=== PATIENT | male | born 1955 | race Caucasian/White ===

== ENCOUNTER 2023-07-10 21:12 | Inpatient (IN) | payer MEDICAID, OTHER ==
[~2023-07-10] VITALS: Ht 172.7 cm; Wt 83.9 kg
[~2023-07-10 21:12] MED LIST: ASPI-1497 PO; ATOR40TA70 PO; GABA-529 PO; INSLIS SUBCUT; LANC1KIT MC; LOSA50TA41 PO; OMEG-118 MT; SEVE800T8 PO; [UNRECOGNIZED DRUG - CODE] PO
[2023-07-10] MEDS: DIPHENHYDRAMINE 25MG CAPSULE PO ONE (21:58)
[2023-07-10] MEDS: MORPHINE SULFATE 4 MG/ML INJ (FOR IV/IM USE) IV STA (22:38)
[2023-07-10 23:00] LABS: BASOPHILS % 0.5 % (0.0-2.0); CHLORIDE 99 mEq/L (98-107); EOSINOPHILS % 0.7 % (0.0-5.0); HEMATOCRIT. 29.5 % (42.0-52.0); LYMPHOCYTES % 9.4 % (20.0-50.0); MEAN CORPUSCULAR HEMOGLOBIN 29.4 pg (28.0-32.0); MEAN CORPUSCULAR HGB CONC 33.9 g/dL (31.0-37.0); MEAN CORPUSCULAR VOLUME 86.9 fL (80.0-94.0); MEAN PLATELET VOLUME 8.3 fl (7.4-10.4); MONOCYTES % 12.4 % (2.0-8.0); PLATELET 262 x1000/uL (130-400); POTASSIUM 3.4 mEq/L (3.5-5.1); RED CELL DISTRIBUTION WIDTH 18.2 % (11.6-14.6); SODIUM 136 mEq/L (136-145); WHITE BLOOD COUNT 8.2 x1000/uL (4.5-11.0)
[2023-07-10 23:01] LABS: CARBON DIOXIDE 30 mEq/L (21-32)
[2023-07-10 23:02] LABS: CALCIUM 9.3 mg/dL (8.7-10.4)
[2023-07-10 23:06] LABS: CREATININE 4.5 mg/dL (0.6-1.3); GLUCOSE 154 mg/dL (70-105); UREA NITROGEN BLOOD 32 mg/dL (9-23)
[2023-07-10 23:07] LABS: PROTHROMBIN TIME 11.3 sec (9.6-11.0)
[2023-07-10 23:08] LABS: ALANINE AMINOTRANSFERASE 68 IU/L (10-49); ALBUMIN 4.2 g/dL (3.2-4.8); ASPARTATE AMINOTRANSFERASE 148 IU/L (<34); BILIRUBIN DIRECT 0.9 mg/dL (<=3.0)
[2023-07-10 23:09] LABS: BILIRUBIN TOTAL 1.2 mg/dL (0.1-1.0)
[2023-07-11] MEDS ORDERED: IPRATROPIUM/ALBUTEROL 0.5-3(2.5)MG/3ML NEB HHN PRN (03:00)
[2023-07-11] MEDS ORDERED: MAGNESIUM/ALUMINUM HYDROXIDE/SIMETHICONE 30ML UDC PO PRN (03:00)
[2023-07-11] MEDS ORDERED: ONDANSETRON HCL 4MG/2ML INJ IV PRN (03:00)
[2023-07-11] MEDS ORDERED: CLONIDINE 0.1MG TABLET PO PRN (03:00)
[2023-07-11] MEDS ORDERED: ACETAMINOPHEN 325MG TABLET PO PRN (03:00)
[2023-07-11] MEDS ORDERED: GUAIFENESIN 200MG/10ML SUGAR FREE UDC PO PRN (03:00)
[2023-07-11] MEDS ORDERED: DOCUSATE SODIUM 100MG CAPSULE PO PRN (03:00)
[2023-07-11] MEDS ORDERED: DEXTROSE 50% WATER 50ML SYRINGE IV PRN (03:00)
[2023-07-11] MEDS ORDERED: HYDR25TA78 PO (03:10)
[2023-07-11] MEDS: LACTULOSE 20G/30ML UDC PO NR (06:00)
[2023-07-11] MEDS ORDERED: LOSA100T33 PO (06:02)
[2023-07-11] MEDS ORDERED: AMLO10TA80 PO (06:02)
[2023-07-11] MEDS: ACETAMINOPHEN 325MG TABLET PO PRN (06:05)
[2023-07-11] MEDS: BLOOD SUGAR DIAGNOSTIC STRIP TEST SCH (06:46)
[2023-07-11] MEDS: PANTOPRAZOLE 40MG DR TABLET PO SCH (06:46)
[2023-07-11] MEDS: SEVELAMER CARBONATE 800 MG TABLET PO SCH (07:14)
[2023-07-11] MEDS: INSULIN LISPRO 100 UNITS/ML SUBCUT SCH (07:15)
[2023-07-11 08:55] VITALS: BP 157/68; PULSE 72; RESP 20; TEMP 97.1
[2023-07-11] MEDS ORDERED: LOSARTAN 100 MG TABLET PO SCH (09:00)
[2023-07-11] MEDS ORDERED: SEVELAMER CARBONATE 800 MG TABLET PO SCH (09:00)
[2023-07-11 09:57] LABS: CALCIUM 8.9 mg/dL (8.7-10.4); CARBON DIOXIDE 29 mEq/L (21-32); CHLORIDE 99 mEq/L (98-107); POTASSIUM 3.6 mEq/L (3.5-5.1); SODIUM 137 mEq/L (136-145)
[2023-07-11 09:59] LABS: BASOPHILS % 0.4 % (0.0-2.0); EOSINOPHILS % 0.7 % (0.0-5.0); HEMATOCRIT. 28.6 % (42.0-52.0); HEMOGLOBIN. 9.5 g/dL (14.0-18.0); LYMPHOCYTES % 9.2 % (20.0-50.0); MEAN CORPUSCULAR HEMOGLOBIN 29.2 pg (28.0-32.0); MEAN CORPUSCULAR HGB CONC 33.4 g/dL (31.0-37.0); MEAN CORPUSCULAR VOLUME 87.5 fL (80.0-94.0); MEAN PLATELET VOLUME 8.2 fl (7.4-10.4); MONOCYTES % 11.7 % (2.0-8.0); PLATELET 227 x1000/uL (130-400); RED BLOOD CELL COUNT 3.27 mill/uL (4.7-6.1); WHITE BLOOD COUNT 7.5 x1000/uL (4.5-11.0)
[2023-07-11 10:03] LABS: GLUCOSE 99 mg/dL (70-105); TRIGLYCERIDE 48 mg/dL (0-150); UREA NITROGEN BLOOD 36 mg/dL (9-23)
[2023-07-11 10:04] LABS: CHOLESTEROL 129 mg/dL (<200); LDL CHOLESTEROL 21 mg/dL (5-100)
[2023-07-11 10:05] LABS: HDL CHOLESTEROL 71 mg/dL (>55); PHOSPHORUS 3.6 mg/dL (2.5-4.9)
[2023-07-11 10:06] LABS: THYROID STIMULATING HORMONE 2.14 uIU/mL (0.55-4.78)
[2023-07-11] MEDS: ENOXAPARIN 30MG/0.3ML SYR SUBCUT SCH (10:25)
[2023-07-11] MEDS: GABAPENTIN 100MG CAPSULE PO SCH (10:25)
[2023-07-11] MEDS: AMLODIPINE 10MG TABLET PO SCH (10:26)
[2023-07-11] MEDS: HYDRALAZINE HCL 25MG TABLET PO SCH (10:26)
[2023-07-11] MEDS: ASPIRIN 81MG EC TABLET PO SCH (10:26)
[2023-07-11] MEDS: ATORVASTATIN CALCIUM 40MG TABLET PO SCH (10:26)
[2023-07-11] MEDS: HYDROCODONE/ACETAMINOPHEN 5/325MG TABLET PO PRN (10:30)
[2023-07-11 10:41] VITALS: BP 157/68; PULSE 72; RESP 20; TEMP 97.1
[2023-07-11 12:00] VITALS: BP 163/58; PULSE 70; RESP 18; TEMP 98.6
[2023-07-11 14:33] LABS: HEPATITIS B SURFACE ANTIGEN NEGATIVE (Negative)
[2023-07-11 14:53] LABS: HEPATITIS A AB IGM NEGATIVE (Negative)
[2023-07-11 14:54] LABS: HEPATITIS B CORE AB IGM NEGATIVE (Negative)
[2023-07-11 14:55] LABS: HEPATITIS C AB NON REACTIVE (Neg) (Negative)
[2023-07-11 16:00] VITALS: BP 137/67; PULSE 65; RESP 20; TEMP 98.4
[2023-07-11 20:00] VITALS: BP 135/54; PULSE 69; RESP 18; TEMP 98.1
[2023-07-11] MEDS: DIPHENHYDRAMINE 25MG CAPSULE PO NR (21:31)
[2023-07-11] MEDS: LOSARTAN 100 MG TABLET PO SCH (21:35)
[2023-07-11] MEDS: EPOETIN ALFA 4000UNITS/ML VIAL SUBCUT SCH (23:10)
[2023-07-12] VITALS (11 sets, daily range): BP systolic 96–160; BP diastolic 20–113; PULSE 68–84; RESP 18–22; TEMP 98–99.4; O2SAT 94
[2023-07-12 06:35] LABS: POTASSIUM 4.2 mEq/L (3.5-5.1)
[2023-07-12 06:36] LABS: CALCIUM 8.9 mg/dL (8.7-10.4)
[2023-07-12 06:49] LABS: BASOPHILS % 0.2 % (0.0-2.0); EOSINOPHILS % 1.1 % (0.0-5.0); HEMATOCRIT. 28.3 % (42.0-52.0); HEMOGLOBIN. 9.5 g/dL (14.0-18.0); LYMPHOCYTES % 8.7 % (20.0-50.0); MEAN CORPUSCULAR HEMOGLOBIN 29.2 pg (28.0-32.0); MEAN CORPUSCULAR HGB CONC 33.6 g/dL (31.0-37.0); MEAN CORPUSCULAR VOLUME 86.9 fL (80.0-94.0); MEAN PLATELET VOLUME 8.7 fl (7.4-10.4); MONOCYTES % 10.9 % (2.0-8.0); NEUTROPHILS % 79.1 % (40.0-76.0); PLATELET 193 x1000/uL (130-400); RED BLOOD CELL COUNT 3.25 mill/uL (4.7-6.1); RED CELL DISTRIBUTION WIDTH 18.1 % (11.6-14.6); WHITE BLOOD COUNT 8.1 x1000/uL (4.5-11.0)
[2023-07-12 06:50] LABS: CREATININE 5.9 mg/dL (0.6-1.3)
[2023-07-12] MEDS ORDERED: NALOXONE HCL 0.4MG/ML VIAL IV PRN (13:30)
[2023-07-12] MEDS: MORPHINE SULFATE 2 MG/ML CPJ (NOT FOR IM USE) IV NR (14:00)
[2023-07-12] MEDS: DIPHENHYDRAMINE 25MG CAPSULE PO NR (17:07)
== END 2023-07-12 20:03 | disposition home or self-care (01) | DRG 194 ==
LOC: ER 21:12 → 5WST 07-11 01:02 → EDBEDREQ 07-11 01:07 → 8WST 07-11 09:42
PROVIDERS: ADMIT Internal Medicine; ATTEND Internal Medicine
PROC: 5A1D70Z Performance of Urinary Filtration, Intermittent, Less than 6 Hours Per Day (ICD-10-PCS; principal; 2023-07-12)
DX: I13.2 Hypertensive heart and chronic kidney disease with heart failure and with stage 5 chronic kidney disease, or end stage renal disease (principal); I31.39 Other pericardial effusion (noninflammatory); N18.6 End stage renal disease; D63.1 Anemia in chronic kidney disease; N25.81 Secondary hyperparathyroidism of renal origin; S39.012A Strain of muscle, fascia and tendon of lower back, initial encounter; I50.33 Acute on chronic diastolic (congestive) heart failure; E11.22 Type 2 diabetes mellitus with diabetic chronic kidney disease; E78.00 Pure hypercholesterolemia, unspecified; K56.41 Fecal impaction; K74.60 Unspecified cirrhosis of liver; X58.XXXA Exposure to other specified factors, initial encounter; Z82.49 Family history of ischemic heart disease and other diseases of the circulatory system; Z83.3 Family history of diabetes mellitus; Z84.1 Family history of disorders of kidney and ureter; Z99.2 Dependence on renal dialysis; Y93.89 Activity, other specified; Y92.89 Other specified places as the place of occurrence of the external cause; Y99.8 Other external cause status
CPT/HCPCS: 36415; 71045; 74176; 80048; 80061; 80076; 82962; 83036; 83735; 84100; 84443; 85025; 86705; 86709; 87340; 90935; 93005; 93306; 93970; 99291; J0885; J1650; J2270; Q0163